=== PATIENT | female | born 1955 | race Caucasian/White ===

== ENCOUNTER 2024-12-23 13:35 | Emergency (ER) | payer MEDICARE, BC ==
[2024-12-23] MEDS ORDERED: Sodium Chloride 0.9% 10 ML Syringe FLUSH PRN (13:45)
[2024-12-23 13:55] LABS: BASOPHILS PERCENT AUTO 0.3 % (0.0-1.0); EOSINOPHILS PERCENT AUTO 2.7 % (1.0-3.0); LYMPHOCYTES PERCENT AUTO 30.3 % (20.5-50.1); MONOCYTES PERCENT AUTO 7.8 % (2-8); NEUTROPHILS PERCENT AUTO 58.9 % (42.2-75.2); PLATELET COUNT,PLT 177 10^3/uL (150-450); RED BLOOD CELL COUNT 4.56 10^6/uL (4.2-5.4); WHITE BLOOD CELL COUNT,WBC 7.5 10^3/uL (5.0-10.0)
[2024-12-23 14:21] LABS: INR 0.9 (0.9-1.2)
[2024-12-23 14:23] LABS: A/G RATIO 1.3; ALANINE AMINOTRANSFERASE,ALT 38 U/L (14-59); ASPARTATE AMNIOTRANSFERASE,AST 21 U/L (15-37); BILIRUBIN TOTAL 0.4 mg/dL (0.2-1.0); BLOOD UREA NITROGEN,BUN 19 mg/dL (7-18); CARBON DIOXIDE,CO2 27 mmol/L (21-32); CHLORIDE,CL 105 mmol/L (98-107); CREATININE 0.78 mg/dL (0.55-1.02); EST CRCL DRUG DOSING (CG) 62.83 mL/min; ESTIMATED GFR 82 mL/min (>=60); GLUCOSE RANDOM 112 mg/dL (70-99); POTASSIUM,K 3.9 mmol/L (3.5-5.1); PROTEIN TOTAL,TP 7.3 g/dL (6.4-8.2); SODIUM,NA 143 mmol/L (136-145)
== END 2024-12-23 15:19 | disposition home or self-care (01) ==
LOC: DL.ED 13:35
DX: R07.89 Other chest pain (principal); Z88.8 Allergy status to other drugs, medicaments and biological substances
CPT/HCPCS: 36415; 80053; 83735; 84484; 85025; 85379; 85610; 86140; 93005; 93010; 99284; 99285